=== PATIENT | male | born 1985 | race Caucasian/White ===

== ENCOUNTER 2019-01-26 09:25 | Emergency (ER) | payer SELFPAY ==
[2019-01-26] MEDS ORDERED: predniSONE 20 MG Tab PO ONE (11:39)
[2019-01-26] MEDS ORDERED: HYDROmorphone 0.5 MG/0.5 ML Syringe IM ONE (11:39)
--- NOTE | 2019-01-26 11:59 | EDM.PDOC ---
ED HPI GENERAL MEDICAL PROBLEM - General Chief Complaint: Upper Extremity Injury/Pain Stated Complaint: RT HAND PAIN Time Seen by Provider: 01/26/19 11:25 Source of Information: Reports: Patient, RN Notes Reviewed History Limitations: Reports: No Limitations - History of Present Illness INITIAL COMMENTS - FREE TEXT/NARRATIVE: The patient is a 33-year-old male who presents to the ED for the evaluation of a right middle finger injury. The patient states that he developed pain into his right middle finger around 2 weeks ago, and he thought this was getting better however over the last 2 days since is worsened immensely. He notes that the pain is pretty constant at a 3/10 but it occasionally seems to spasm and causes him extreme pain which he would rate at a 10 out of 10. He notes that the entire right middle finger is swollen, and does shoot pain down his arm. 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 He denies any trauma to the area. However he states that he has had previous injuries to the hand where he has cut some fingers pretty extensively and had that repaired. The patient states that he's been taking 800 mg ibuprofen 2 times daily and this is been kind of helping but he has been placing diclofenac topical ointment on the finger and this seems to help the best. Right Finger-Middle Pain Score (Numeric/FACES): 3 - Related Data Allergies Allergy/AdvReac Type Severity Reaction Status Date / Time No Known Allergies Allergy Verified 01/26/19 10:03 Home Meds: Home Meds Acetaminophen/HYDROcodone [[place] 325-5 MG] 1 tab PO Q6H PRN #12 tablet 01/26/19 [Rx] Past Medical History Respiratory History: Reports: Other (See Below) Other Respiratory History: History of intubation, chest tube with trauma years ago - Past Surgical History GI Surgical History: Reports: Other (See Below) Other GI Surgeries/Procedures: right inguinal hernia repair Neurological Surgical History: Reports: Other (See Below) Other Neurological Surgeries/Procedures: microdiskectomy Musculoskeletal Surgical History: Reports: Other (See Below) Other Musculoskeletal Surgeries/Procedures:: rib fractures Social & Family History - Family History Family Medical History: Noncontributory - Tobacco Use Smoking Status *Q: Current Every Day Smoker Years of Tobacco use: 15 Packs/Tins Daily: 0.5 - Caffeine Use Caffeine Use: Reports: Coffee, Soda - Recreational Drug Use Recreational Drug Use: No Review of Systems - Review of Systems Review Of Systems: See Below Constitutional: Reports: No Symptoms Eyes: Reports: No Symptoms Ears: Reports: No Symptoms Nose: Reports: No Symptoms Mouth/Throat: Reports: No Symptoms Respiratory: Reports: No Symptoms Cardiovascular: Reports: No Symptoms GI/Abdominal: Reports: No Symptoms Genitourinary: Reports: No Symptoms Musculoskeletal: Reports: Hand Pain (Right hand pain, R middle finger pain) Skin: Reports: No Symptoms ED EXAM, GENERAL - Physical Exam Exam: See Below Exam Limited By: No Limitations General Appearance: Alert, WD/WN, No Apparent Distress Respiratory/Chest: No Respiratory Distress, Lungs Clear, Normal Breath Sounds, No Accessory Muscle Use, Chest Non-Tender Cardiovascular: Normal Peripheral Pulses, Regular Rate, Rhythm, No Murmur Peripheral Pulses: 3+: Radial (L), Radial (R) Extremities: Normal Inspection, Normal Capillary Refill, Limited Range of Motion (of right fingers d/t pain. He is not able to fully extend his fingers without shooting pains. He notes that if he holds his right wrist, this does alleviate the pain.) Neurological: Alert, Oriented, Normal Cognition, No Motor/Sensory Deficits Psychiatric: Normal Affect, Normal Mood Skin Exam: Warm, Dry, Intact, Normal Color, No Rash Course - Vital Signs Last Recorded V/S: Last Vital Signs Temp 98.4 F 01/26/19 10:00 Pulse 79 01/26/19 10:00 Resp 16 01/26/19 10:00 BP 131/92 H 01/26/19 10:00 Pulse Ox 100 01/26/19 10:00 - Orders/Labs/Meds Labs: Laboratory Tests 01/26/19 01/26/19 01/26/19 Range/Units 12:50 12:50 13:13 WBC 12.93 H (4.23-9.07) K/mm3 RBC 4.42 L (4.63-6.08) M/mm3 Hgb 13.1 L (13.7-17.5) gm/L Hct 39.2 L (40.1-51.0) % MCV 88.7 (79.0-92.2) fl MCH 29.6 (25.7-32.2) pg MCHC 33.4 (32.2-35.5) g/dl RDW Std Deviation 45.1 H (35.1-43.9) fL Plt Count 283 (163-337) K/mm3 MPV 10.0 (9.4-12.3) fl Neutrophils % (Manual) 78 H (40-60) % Band Neutrophils % 0 (0-10) % Lymphocytes % (Manual) 18 L (20-40) % Atypical Lymphs % 0 % Monocytes % (Manual) 4 (2-10) % Eosinophils % (Manual) 0 L (0.8-7.0) % Basophils % (Manual) 0 L (0.2-1.2) Platelet Estimate Adequate RBC Morph Comment Normal ESR 14 (0-15) mm/hr C-Reactive Protein 0.5 (<1.0) mg/dL Meds: Medications Discontinued Medications Generic Name Dose Route Start Last Admin Trade Name Freq PRN Reason Stop Dose Admin Hydromorphone HCl 0.5 mg 01/26/19 11:39 01/26/19 11:51 Dilaudid IM 01/26/19 11:40 0.5 mg ONETIME ONE Administration Prednisone 40 mg 01/26/19 11:39 01/26/19 11:51 Prednisone PO 01/26/19 11:40 40 mg ONETIME ONE Administration - Radiology Interpretation Free Text/Narrative:: Hand x-ray is read as follows. 1. Metallic foreign body, this is linear and 7.6 mm in length near the pieces forearm bone in the volar wrist. 2. 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 3. No acute bony abnormality is seen. - Re-Assessments/Exams Free Text/Narrative Re-Assessment/Exam: 01/26/19 11:56 The patient presents to the ED for evaluation of a right middle finger injury or pain. An x-ray was obtained by triage nurse, and this does not demonstrate any sort of acute fracture of the right finger, however there does appear to be some sort of metallic foreign body on the anterior surface of his right wrist. 01/26/19 12:39 The patient was reassessed at bedside, he is feeling quite a bit of pain, I also was in contact with Dr. Miranda in [place], he is a hand surgeon, he reviewed the x-rays and was worried about a possible tenosynovitis when I told him the patient's history, he recommended doing some baseline labs, CBC, CRP and a sedimentation rate I did order these labs for evaluation, patient still denies any fevers or chills that he's been having. He will need to go be evaluated by Dr. Miranda tomorrow in [place] and I did let the patient know this. Departure - Departure Time of Disposition: 12:40 Disposition: Home, Self-Care 01 Condition: Fair Clinical Impression: Pain of right middle finger - Discharge Information *PRESCRIPTION DRUG MONITORING PROGRAM REVIEWED*: No *COPY OF PRESCRIPTION DRUG MONITORING REPORT IN PATIENT BREANNE: No Prescriptions: Acetaminophen/HYDROcodone [[place] 325-5 MG] 1 tab PO Q6H PRN #12 tablet PRN Reason: Pain Instructions: Tendinitis, [id number] Referrals: PCP,None [Primary Care Provider] - Forms: ED Department Discharge Additional Instructions: You were evaluated in the ED today for your right middle finger pain. An x-ray was obtained and there was metallic foreign body identified on the x- ray but this is known to be old. Your symptoms were worrisome from the hand surgeon's viewpoint for tenosynovitis which is an inflammation of the tendon sheath on the right hand. You were given a few tablets of pain medications to get through tomorrow, these were electronically prescribed to the [facility] pharmacy located near [facility]. The surgeon would like to see you for evaluation in [place] at the [facility] at noon Central time, he also suggested that you do not eat anything or drink anything after midnight tonight in case you would require surgery tomorrow. You did have some labs drawn at today's ER visit, recommend that you come by tomorrow morning for a printout of these so you can take them with to your appointment tomorrow. Please return to the ED if your symptoms should change or worsen.
--- NOTE | 2019-01-26 12:09 | CR ---
Right hand: 4 views of the right hand were obtained. Comparison: No previous hand exam is available. Findings: Small linear radiopacity is seen which is suspicious for broken needle or other piece of wire which is projected within the volar wrist close to the pisiform bone. This linear opacity measures 7.6 mm in length. Cysts are seen within the lunate bone. Joint spaces are maintained within the hand and wrist. No additional abnormality is appreciated. Impression: 1. Metallic foreign body as described above. 2. 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 3. No acute bony abnormality is seen. Diagnostic code #3
== END 2019-01-26 12:58 | disposition home or self-care (01) ==
LOC: JD.ED 09:25
DX: M79.644 Pain in right finger(s) (principal); F17.210 Nicotine dependence, cigarettes, uncomplicated
CPT/HCPCS: 36415; 73130; 85007; 85027; 85652; 86140; 96372; 99283; A9270; J1170

== ENCOUNTER 2019-02-06 01:49 | Emergency (ER) | payer SELFPAY ==
--- NOTE | 2019-02-06 02:13 | EDM.PDOC ---
ED HPI GENERAL MEDICAL PROBLEM - General Chief Complaint: Allergic Reaction Stated Complaint: INFECTED R HAND/ALLERGIC REACTION Time Seen by Provider: 02/06/19 02:13 Source of Information: Reports: Patient History Limitations: Reports: No Limitations - History of Present Illness INITIAL COMMENTS - FREE TEXT/NARRATIVE: 33-year-old male presents to the ED with painful swollen right third finger that had become secondarily infected. He has had a Z-plasty on the volar aspect of the finger and a puncture wound to drain no man's land mid Nu[place]ez's space and also volar wrist area carried out by hand surgeon in [place] 10 days ago. Initial presentation was to her hospital cultures were obtained. He states his finger has become much more swollen over the last 24-36 hours and more painful. He took his last tablet of Bactrim double strength yesterday. He did see the PA in follow-up in [place] and asked for more antibiotics but was declined. Subsequently he developed a diffuse erythematous rash with hives tonight including swelling is of his lips and his eyelids. Associated generalized pruritus. Unclear whether the Bactrim double strength did this as he finished up the last 10 days of medication yesterday. or whether the ibuprofen that he took i.e. 800 mg before going to bed precipitated the allergic response. He states she's been taking 800 mg of ibuprofen twice daily for at least 2 weeks without any problems. It appears that is most likely an allergic reaction to Bactrim. He is taken 50 mg of Benadryl by mouth 2 hours ago and most of his itching and erythema has dissipated but his lips remain grossly swollen and his eyelids are swollen. States his fingers throbbing in killing him with pain. Onset: Sudden Onset Date: 02/05/19 Onset Time: 23:00 Duration: Hour(s):, Improving (He states the redness and itching is somewhat improved since took Benadryl 50 mg by mouth. His legs remain swollen his eyes remain swollen and he still has a bit of a heavy pressure in his central chest.) Location: Reports: Face (Swelling of both upper and lower eyelids in both upper and lower lips.), Chest Quality: Reports: Other (Allergic reaction.) Severity: Moderate Improves with: Reports: Other (Has modest improvement of erythema and urticaria after taking Benadryl 50 mg by mouth 2 hours ago.) Worsens with: Reports: None Context: Reports: Other (Just finished a 10 day course of Bactrim double strength yesterday for an infection in his right third finger that had to be surgically opened and drained by a hand surgeon. Suspect culprit is sulfa medications. The only other medication is been taking his ibuprofen 800 mg twice daily and is been doing that for many months.). Denies: Activity, Exercise, Lifting, Sick Contact, Trauma Associated Symptoms: Reports: Chest Pain. 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: Reports: Other (see below) (None.) Chest Pain Score (Numeric/FACES): 4 - Related Data Allergies Allergy/AdvReac Type Severity Reaction Status Date / Time Penicillins Allergy Hives Verified 02/06/19 02:19 Home Meds: Home Meds Acetaminophen/HYDROcodone [[place] 325-5 MG] 1 tab PO Q6H PRN #12 tablet 01/26/19 [Rx] Doxycycline [Vibramycin] 100 mg PO BID #24 cap 02/06/19 [Rx] Ibuprofen 800 mg PO DAILY PRN 02/06/19 [History] Sulfamethoxazole/Trimethoprim [Bactrim Ds Tablet] 1 tab PO BID 02/06/19 [History ] oxyCODONE HCl/Acetaminophen [Percocet 5-325 mg Tablet] 1 - 2 each PO Q4H PRN # 16 tablet 02/06/19 [Rx] predniSONE [Deltasone] 20 mg PO BID #6 tablet 02/06/19 [Rx] Past Medical History Respiratory History: Reports: Other (See Below) Other Respiratory History: History of intubation, chest tube with trauma years ago Musculoskeletal History: Reports: Other (See Below) (Patient is currently recovering from a infection in his right third finger. He required a Z-plasty of the finger and opening of [place] man[place] in the palmar aspect of his hand to drains pus as well as a surgical wound at the wrist 10 days ago. He was reviewed by orthopedic surgeon's PA yesterday who felt that he did not require any further antibiotic therapy. Patient states that the finger is becoming more swollen and more painful and had requested further antibiotic therapy which was denied to him.) - Past Surgical History GI Surgical History: Reports: Other (See Below) Other GI Surgeries/Procedures: right inguinal hernia repair Neurological Surgical History: Reports: Other (See Below) Other Neurological Surgeries/Procedures: microdiskectomy Musculoskeletal Surgical History: Reports: Other (See Below) Other Musculoskeletal Surgeries/Procedures:: rib fractures Social & Family History - Family History Family Medical History: Noncontributory - Caffeine Use Caffeine Use: Reports: Coffee, Soda - Living Situation & Occupation Living situation: Reports: Single Occupation: Employed ED ROS ALLERGIC REACTION - Review of Systems Review Of Systems: See Below Constitutional: Reports: Fatigue, Decreased Appetite. Denies: Fever, Chills, Malaise, Weakness HEENT: Reports: Other (Swelling of upper and lower lips. Swelling of upper and lower eyelids.) Respiratory: Reports: Shortness of Breath. Denies: Cough (Feels a sense of shortness of breath and a pressure in his central chest.) Cardiovascular: Reports: Chest Pain (Central chest discomfort.). Denies: Blood Pressure Problem, Claudication, Dyspnea on Exertion, Edema, Lightheadedness, Orthopnea Endocrine: Reports: No Symptoms GI/Abdominal: Reports: No Symptoms Skin: Reports: Pruritis, Erythema, Urticaria Neurological: Reports: No Symptoms Psychiatric: Reports: No Symptoms Hematologic/Lymphatic: Reports: No Symptoms ED EXAM GENERAL NO PERIP PULSE - Physical Exam Exam: See Below Exam Limited By: No Limitations General Appearance: Alert, WD/WN, Anxious, Mild Distress Eye Exam: Bilateral Eye: Periorbital Changes (There is edema both the upper and lower eyelids bilaterally. No conjunctival edema. It's his eyes are mildly itchy.) Ears: Normal TMs Throat/Mouth: Other (Both upper and lower lips are markedly edematous particular the upper lip.) Head: Atraumatic ( No evidence that this affected his tongue the back of his throat the uvula is normal in the floor the mouth is normal.), Normocephalic Neck: Normal Inspection, Supple, Non-Tender, Full Range of Motion. No: Lymphadenopathy (L), Lymphadenopathy (R) Respiratory/Chest: No Respiratory Distress, Lungs Clear, Normal Breath Sounds, Chest Non-Tender. No: Wheezing Cardiovascular: Normal Peripheral Pulses, Regular Rate, Rhythm, No Edema, No Gallop, No Murmur, No Rub GI/Abdominal: Normal Bowel Sounds, Soft, Non-Tender, No Organomegaly, No Abnormal Bruit, No Mass, Pelvis Stable Extremities: Normal Inspection, Other (Examination of his right third finger shows it to be markedly so swollen. It is probably twice normal thickness and size. He has inability to fully flex the finger due to swelling. Warm to palpation suggesting that it is suffering an infective process. Surgical wounds on the volar surface of the finger and palm of his hand appear to be healing satisfactorily. However the finger itself appears to be becoming infected once again) Neurological: Alert, Oriented, CN II-XII Intact, Normal Cognition Psychiatric: Anxious Course - Vital Signs Last Recorded V/S: Last Vital Signs Temp 36.1 C 02/06/19 02:11 Pulse 71 02/06/19 02:11 Resp 19 02/06/19 04:25 BP 116/72 02/06/19 04:25 Pulse Ox 99 02/06/19 04:25 - Orders/Labs/Meds Meds: Medications Discontinued Medications Generic Name Dose Route Start Last Admin Trade Name Lizette PRN Reason Stop Dose Admin Dexamethasone 10 mg 02/06/19 02:22 02/06/19 02:40 Dexamethasone IV 02/06/19 02:23 10 mg ONETIME ONE Administration Diphenhydramine HCl 25 mg 02/06/19 02:22 02/06/19 02:36 Benadryl IVPUSH 02/06/19 02:23 25 mg ONETIME ONE Administration Famotidine 20 mg 02/06/19 02:22 02/06/19 02:41 Pepcid IVPUSH 02/06/19 02:23 20 mg ONETIME ONE Administration Hydromorphone HCl 0.5 mg 02/06/19 02:24 02/06/19 02:41 Dilaudid IVPUSH 02/06/19 02:25 0.5 mg ONETIME ONE Administration Sodium Chloride 1,000 mls @ 500 mls/hr 02/06/19 02:30 02/06/19 02:49 Normal Saline IV 500 mls/hr ASDIRECTED MADAN Administration Doxycycline Hyclate 100 mg/ 100 mls @ 100 mls/hr 02/06/19 02:23 02/06/19 03: 01 Sodium Chloride IV 02/06/19 03:22 100 mls/hr ONETIME ONE Administration Ondansetron HCl 4 mg 02/06/19 02:23 02/06/19 02:36 Zofran IVPUSH 02/06/19 02:24 4 mg ONETIME ONE Administration - Radiology Interpretation Free Text/Narrative:: 33-year-old male presents to the ED with an acute generalized allergic reaction. He has just finished a 10 day course of Bactrim double strength for infection in his right third finger that required Z-plasty and opening of the [place] man[place] in the palm of his hand by a hand surgeon to decompress it and wash out the wound. Us was done 11 days ago. He presents with generalized pruritus generalized erythema swelling of his upper and lower lips and swelling of his upper and lower eyelids. Central chest pressure discomfort described as a heaviness. He is not wheezing. There is no swelling of his uvula or the floor the mouth or tongue. Definite swelling of the upper lip and lower lip. Upper lip is 3 times normal size. There is edema both upper and lower eyelids. His erythema urticaria he states is markedly improved since 2 Benadryl 50 mg 2 hours before coming to the ED. Plan he will be given IV fluids normal saline at 500 mils per hour. Will give him dexamethasone 10 mg IV for allergic relief. 25 mg of Benadryl IV and Pepcid 20 mg IV. Also give him Dilaudid 0.5 mg IV for pain in his right third finger. Will also be given Zofran 4 mg IV to prevent any nausea vomiting from the Dilaudid. I believe the finger is infected I'm going to give him a dose of doxycycline 100 mg IV. - Re-Assessments/Exams Free Text/Narrative Re-Assessment/Exam: 02/06/19 04:02 patient is feeling improved. Lip swelling is at least 50% better no further itching or redness or hives. It appears that this most likely is allergic response to sulfa antibiotic. His right middle finger is markedly swollen and he indicates that his become much more swollen in the last day or so. This suggests a recurrence of infection. I'm going to place him on doxycycline 100 mg twice daily for another 12 days to clear the infection up. He will be placed on prednisone 20 mg twice a day for 3 days breakfast and supper to prevent further allergic response. He will use Benadryl 50 mg every 6 hours as needed for recurrence of itching or erythema or hives. I have advised him to send pictures of his finger to his orthopedic surgeon to see whether or not he wants to see him sooner rather than later in regards to suspect recurrent infection within the finger. Departure - Departure Time of Disposition: 04:04 Disposition: Home, Self-Care 01 Condition: Fair Clinical Impression: Allergic reaction due to antibacterial drug, Recurrent bacterial infection - Discharge Information *PRESCRIPTION DRUG MONITORING PROGRAM REVIEWED*: Not Applicable *COPY OF PRESCRIPTION DRUG MONITORING REPORT IN PATIENT BREANNE: Not Applicable Prescriptions: Doxycycline [Vibramycin] 100 mg PO BID #24 cap oxyCODONE HCl/Acetaminophen [Percocet 5-325 mg Tablet] 1 - 2 each PO Q4H PRN # 16 tablet PRN Reason: pain relief. predniSONE [Deltasone] 20 mg PO BID #6 tablet Instructions: Allergies, Adult, [id number], Drug Allergy, Antibiotic Medicine , Adult Referrals: PCP,None [Primary Care Provider] - Forms: ED Department Discharge Additional Instructions: Evaluation the emergency room this morning in regards to development of allergic response with generalized itchiness and erythema of the skin with some hives and swelling of your lips and lower and upper eyelids. Associated heaviness in her chest as well. It appears that you most likely have developed an allergic response to the antibiotic you're on for the last 10 days called Bactrim double strength. This has a sulfa antibiotic in it and you are therefore allergic to sulfa antibiotics for the rest of your life. You're treated with 25 mg of Benadryl intravenously with Pepcid 20 mg IV and dexamethasone 10 mg IV just alleviate the acute allergic reaction. You may have to take Benadryl 50 mg every 6 hours for recurrence of itching or erythema or hives for the next day or so. He will need to take prednisone 20 mg twice daily for the next 3 days usually with breakfast and supper to prevent allergic response from reoccurring. Due to increased swelling of your right index finger and recent need for surgical drainage I have placed her back on antibiotics. You 're given the initial dose of doxycycline 100 mg intravenously while in the ED. You will need to use the tablet form 100 mg twice daily for the next 12 days to try and clear this infection up. Next dose would be due at suppertime tonight. If the finger is not markedly improved on the next 48 hours to 72 hours she will need to follow-up with the hand surgeon that did the initial surgery. I would tell you just go back to [place] for this.
[2019-02-06] MEDS ORDERED: diphenhydrAMINE 50 MG/ML SDV IVPUSH ONE (02:22)
[2019-02-06] MEDS ORDERED: Dexamethasone 4 MG/ML 5 ML MDV IV ONE (02:22)
[2019-02-06] MEDS ORDERED: Famotidine 20 MG/2 ML SDV IVPUSH ONE (02:22)
[2019-02-06] MEDS ORDERED: Ondansetron 4 MG/2 ML SDV IVPUSH ONE (02:23)
[2019-02-06] MEDS ORDERED: Doxycycline 100 MG in Sodium Chloride 0.9% 100 ML IV ONE (02:23)
[2019-02-06] MEDS ORDERED: HYDROmorphone 0.5 MG/0.5 ML Syringe IVPUSH ONE (02:24)
[2019-02-06] MEDS ORDERED: Sodium Chloride 0.9% 1,000 ML IV SCH (02:30)
== END 2019-02-06 04:25 | disposition home or self-care (01) ==
LOC: JD.ED 01:49
DX: A49.9 Bacterial infection, unspecified (principal); T36.95XA Adverse effect of unspecified systemic antibiotic, initial encounter; Z88.0 Allergy status to penicillin
CPT/HCPCS: 96365; 96375; 99284; J1100; J1170; J1200; J2405; J3490; J7030; J7040; S0028

== ENCOUNTER 2019-08-02 16:11 | Emergency (ER) | payer MEDICAID, OTHER ==
--- NOTE | 2019-08-02 17:26 | EDM.PDOC ---
ED HPI GENERAL MEDICAL PROBLEM - General Chief Complaint: General Stated Complaint: FLANK PAIN Time Seen by Provider: 08/02/19 17:04 Source of Information: Reports: Patient History Limitations: Reports: No Limitations - History of Present Illness INITIAL COMMENTS - FREE TEXT/NARRATIVE: Kenneth is a 34 year old male who presents today for multiple different complaints . Reports bilateral flank pain, pain in his low back, buttocks, chest , abdomen and muscle spasms throughout his abdomen. He reports urgency to urinate but inability to urinate. States he is up every 30 minutes at night to urinate. Feels he has multiple organ failure due to infection in his teeth and from his finger. State he symptoms have been going on for 2 years. Reports he has infection all throughout his body. In February he had an infected finger which required surgical intervention. He is drinking a [employer] milk shake when I enter the room. He has candy in his pocket which he is eating to rid his mouth of the "horrible taste". Onset: Gradual Duration: Week(s): (104) Location: Reports: Chest, Abdomen, Back Bilateral Flank Pain Score (Numeric/FACES): 7 - Related Data Allergies Allergy/AdvReac Type Severity Reaction Status Date / Time Penicillins Allergy Hives Verified 02/06/19 02:19 Home Meds: Home Meds Acetaminophen/HYDROcodone [[place] 325-5 MG] 1 tab PO Q6H PRN #12 tablet 01/26/19 [Rx] Doxycycline [Vibramycin] 100 mg PO BID #24 cap 02/06/19 [Rx] Ibuprofen 800 mg PO DAILY PRN 02/06/19 [History] Sulfamethoxazole/Trimethoprim [Bactrim Ds Tablet] 1 tab PO BID 02/06/19 [History ] oxyCODONE HCl/Acetaminophen [Percocet 5-325 mg Tablet] 1 - 2 each PO Q4H PRN # 16 tablet 02/06/19 [Rx] predniSONE [Deltasone] 20 mg PO BID #6 tablet 02/06/19 [Rx] Clindamycin HCl 300 mg PO Q6HR #40 capsule 08/02/19 [Rx] Past Medical History Cardiovascular History: Reports: Heart Murmur Respiratory History: Reports: Other (See Below) Other Respiratory History: History of intubation, chest tube with trauma years ago Musculoskeletal History: Reports: Other (See Below) Psychiatric History: Reports: Anxiety, Depression - Infectious Disease History Infectious Disease History: Reports: C-Difficile - Past Surgical History HEENT Surgical History: Reports: Oral Surgery GI Surgical History: Reports: Other (See Below) Other GI Surgeries/Procedures: right inguinal hernia repair Neurological Surgical History: Reports: Other (See Below) Other Neurological Surgeries/Procedures: microdiskectomy Musculoskeletal Surgical History: Reports: Other (See Below) Other Musculoskeletal Surgeries/Procedures:: rib fractures Social & Family History - Family History Family Medical History: Noncontributory - Tobacco Use Smoking Status *Q: Current Every Day Smoker Years of Tobacco use: 15 Packs/Tins Daily: 0.5 - Caffeine Use Caffeine Use: Reports: Coffee, Soda - Living Situation & Occupation Living situation: Reports: Single Occupation: Employed ED ROS GENERAL - Review of Systems Review Of Systems: See Below Constitutional: Reports: Malaise Cardiovascular: Reports: Chest Pain GI/Abdominal: Reports: Abdominal Pain : Reports: Flank Pain, Frequency, Urgency Musculoskeletal: Reports: Back Pain, Leg Pain Skin: Reports: Lumps (neck) ED EXAM, GENERAL - Physical Exam Exam: See Below Exam Limited By: No Limitations General Appearance: Alert, WD/WN, No Apparent Distress Eye Exam: Bilateral Eye: Normal Inspection Ears: Normal External Exam, Normal Canal, Hearing Grossly Normal, Normal TMs Nose: Normal Inspection Throat/Mouth: Normal Inspection, Normal Lips, Normal Voice, No Airway Compromise , Other (poor dentition with multiple missing teeth, multiple carries and significant gingivitis) Neck: Normal Inspection, Full Range of Motion Respiratory/Chest: No Respiratory Distress, Lungs Clear, Normal Breath Sounds Cardiovascular: Normal Peripheral Pulses, Regular Rate, Rhythm, No Murmur Peripheral Pulses: 3+: Radial (L), Radial (R), Posterior Tibial (L), Posterior Tibial (R), Dorsalis Pedis (L), Dorsalis Pedis (R) GI/Abdominal: Normal Bowel Sounds, Soft, Non-Tender Neurological: Alert, Normal Cognition Skin Exam: Warm, Dry, Normal Color Course - Vital Signs Last Recorded V/S: Last Vital Signs Temp 97.8 F 08/02/19 16:30 Pulse 87 08/02/19 16:30 Resp 16 08/02/19 16:30 BP 147/98 H 08/02/19 16:30 Pulse Ox 100 08/02/19 16:30 - Orders/Labs/Meds Labs: Laboratory Tests 08/02/19 08/02/19 08/02/19 Range/Units 17:35 17:35 18:20 WBC 5.19 (4.23-9.07) K/mm3 RBC 4.63 (4.63-6.08) M/mm3 Hgb 13.3 L (13.7-17.5) gm/dl Hct 42.6 (40.1-51.0) % MCV 92.0 D (79.0-92.2) fl MCH 28.7 (25.7-32.2) pg MCHC 31.2 L (32.2-35.5) g/dl RDW Std Deviation 47.7 H (35.1-43.9) fL Plt Count 205 D (163-337) K/mm3 MPV 10.3 (9.4-12.3) fl Neutrophils % (Manual) 52 (40-60) % Band Neutrophils % 0 (0-10) % Lymphocytes % (Manual) 36 (20-40) % Atypical Lymphs % 0 % Monocytes % (Manual) 11 H (2-10) % Eosinophils % (Manual) 0 L (0.8-7.0) % Basophils % (Manual) 1 (0.2-1.2) Platelet Estimate Adequate Plt Morphology Comment Normal RBC Morph Comment Normal Sodium 144 (136-145) mEq/L Potassium 3.3 L (3.5-5.1) mEq/L Chloride 104 (98-107) mEq/L Carbon Dioxide 27 (21-32) mEq/L Anion Gap 16.3 H (5-15) BUN 7 (7-18) mg/dL Creatinine 1.0 (0.7-1.3) mg/dL Est Cr Clr Drug Dosing 106.85 mL/min Estimated GFR (MDRD) > 60 (>60) mL/min BUN/Creatinine Ratio 7.0 L (14-18) Glucose 102 (74-106) mg/dL Calcium 8.6 (8.5-10.1) mg/dL Total Bilirubin 0.2 (0.2-1.0) mg/dL AST 15 (15-37) U/L ALT 23 (16-63) U/L Alkaline Phosphatase 103 (46-116) U/L C-Reactive Protein 1.1 H* (<1.0) mg/dL Total Protein 7.6 (6.4-8.2) g/dl Albumin 3.7 (3.4-5.0) g/dl Globulin 3.9 gm/dL Albumin/Globulin Ratio 1.0 (1-2) Urine Color Light yellow (Yellow) Urine Appearance Clear (Clear) Urine pH 7.0 (5.0-8.0) Ur Specific [place] 1.025 (1.005-1.030) Urine Protein Trace H (Negative) Urine Glucose (UA) Negative (Negative) Urine Ketones Negative (Negative) Urine Occult Blood Negative (Negative) Urine Nitrite Negative (Negative) Urine Bilirubin Negative (Negative) Urine Urobilinogen 0.2 (0.2-1.0) Ur Leukocyte Esterase Negative (Negative) Urine RBC Not seen (0-5) /hpf Urine WBC 0-5 (0-5) /hpf Ur Squamous Epith Cells 0-5 (0-5) /hpf Urine Bacteria Not seen (FEW) /hpf Urine Mucus Few (FEW) /hpf Urine Opiates Screen (ECENII=658) Ur Buprenorphine Scrn (CUTOFF=10) Ur Oxycodone Screen (FRN1EL=666) Urine Methadone Screen (DYI6RU=440) Ur Propoxyphene Screen (FKULCR=013) Ur Barbiturates Screen (BXOPSL=623) Ur Tricyclics Screen (EGAFWC=874) Ur Phencyclidine Scrn (CUTOFF=25) Ur Amphetamine Screen (POSBTR=132) U Methamphetamines Scrn (YXTOYX=511) U Benzodiazepines Scrn (TKLCFO=156) U Cocaine Metab Screen (VIRIWQ=752) U Marijuana (THC) Screen (CUTOFF=50) 08/02/19 Range/Units 18:20 WBC (4.23-9.07) K/mm3 RBC (4.63-6.08) M/mm3 Hgb (13.7-17.5) gm/dl Hct (40.1-51.0) % MCV (79.0-92.2) fl MCH (25.7-32.2) pg MCHC (32.2-35.5) g/dl RDW Std Deviation (35.1-43.9) fL Plt Count (163-337) K/mm3 MPV (9.4-12.3) fl Neutrophils % (Manual) (40-60) % Band Neutrophils % (0-10) % Lymphocytes % (Manual) (20-40) % Atypical Lymphs % % Monocytes % (Manual) (2-10) % Eosinophils % (Manual) (0.8-7.0) % Basophils % (Manual) (0.2-1.2) Platelet Estimate Plt Morphology Comment RBC Morph Comment Sodium (136-145) mEq/L Potassium (3.5-5.1) mEq/L Chloride (98-107) mEq/L Carbon Dioxide (21-32) mEq/L Anion Gap (5-15) BUN (7-18) mg/dL Creatinine (0.7-1.3) mg/dL Est Cr Clr Drug Dosing mL/min Estimated GFR (MDRD) (>60) mL/min BUN/Creatinine Ratio (14-18) Glucose (74-106) mg/dL Calcium (8.5-10.1) mg/dL Total Bilirubin (0.2-1.0) mg/dL AST (15-37) U/L ALT (16-63) U/L Alkaline Phosphatase (46-116) U/L C-Reactive Protein (<1.0) mg/dL Total Protein (6.4-8.2) g/dl Albumin (3.4-5.0) g/dl Globulin gm/dL Albumin/Globulin Ratio (1-2) Urine Color (Yellow) Urine Appearance (Clear) Urine pH (5.0-8.0) Ur Specific [place] (1.005-1.030) Urine Protein (Negative) Urine Glucose (UA) (Negative) Urine Ketones (Negative) Urine Occult Blood (Negative) Urine Nitrite (Negative) Urine Bilirubin (Negative) Urine Urobilinogen (0.2-1.0) Ur Leukocyte Esterase (Negative) Urine RBC (0-5) /hpf Urine WBC (0-5) /hpf Ur Squamous Epith Cells (0-5) /hpf Urine Bacteria (FEW) /hpf Urine Mucus (FEW) /hpf Urine Opiates Screen Negative (GZYTPP=008) Ur Buprenorphine Scrn Negative (CUTOFF=10) Ur Oxycodone Screen Negative (FWE8QN=758) Urine Methadone Screen Negative (ITG6YV=364) Ur Propoxyphene Screen Negative (GDHMBT=772) Ur Barbiturates Screen Negative (TTDDZL=788) Ur Tricyclics Screen Negative (JYMSHC=314) Ur Phencyclidine Scrn Negative (CUTOFF=25) Ur Amphetamine Screen Presumptive positive H (KYSVRM=894) U Methamphetamines Scrn Presumptive positive H (NIWFIX=613) U Benzodiazepines Scrn Negative (YZNQFF=917) U Cocaine Metab Screen Negative (OVSKYO=411) U Marijuana (THC) Screen Negative (CUTOFF=50) - Radiology Interpretation Free Text/Narrative:: chest xray shows an old anterior wedge deformity in the mid thoracic spine. Nothing acute KUB shows nothing acute. - Re-Assessments/Exams Free Text/Narrative Re-Assessment/Exam: 08/02/19 18:32 I reviewed the labs and imaging with the patient. He insists he has dental infections. He state she is able to pull his teeth out and he reports a bad taste in his mouth. I will place him on clindamycin for dental infection and he needs to follow-up with a dentist. He is positive for methamphetamine. He denies using this recently. I can not account for his muscle spasms and pain. I recommend he establish with a primary care provider for further evaluation. Discharge instructions as documented. Departure - Departure Time of Disposition: 18:49 Disposition: Home, Self-Care 01 Condition: Fair Clinical Impression: Infected dental caries, Methamphetamine abuse - Discharge Information *PRESCRIPTION DRUG MONITORING PROGRAM REVIEWED*: No *COPY OF PRESCRIPTION DRUG MONITORING REPORT IN PATIENT BREANNE: No Prescriptions: Clindamycin HCl 300 mg PO Q6HR #40 capsule Instructions: Dental Abscess, Ktse-co-Bewk, Stimulant Use Disorder- Methamphetamines Referrals: PCP,None [Primary Care Provider] - Franck Love MD [Physician] - Forms: ED Department Discharge Additional Instructions: Take the clindamycin 1 cap PO every 6 hours x 10 days. Take with food. Recommend a probiotic, these are available OTC. Follow-up with a dentist as soon as you are able. Rest. Avoid any drugs, alcohol or etc as these will worsen your symptoms. Drink plenty of fluids. Drink water, gatorade, powerade. Follow-up with family medicine. Recommend Dr. White or Marty Schultz at the [facility] ([place]. Call [phone] to schedule with a provider there. Please return to the ER should your symptoms change or worsen. Sepsis Event Note - Evaluation Sepsis Screening Result: No Definite Risk - Focused Exam Vital Signs: Vital Signs Temp Pulse Resp BP Pulse Ox 08/02/19 16:30 97.8 F 87 16 147/98 H 100 Date Exam was Performed: 08/02/19 Time Exam was Performed: 19:09
--- NOTE | 2019-08-02 17:43 | CR ---
Chest: PA and lateral views of the chest were obtained. Comparison: No prior chest x-ray. Heart size and mediastinum are normal. Lungs are clear with no acute parenchymal change. Anterior wedge deformity is seen within the mid thoracic spine which is moderately severe. This is most likely old. Impression: 1. 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 2. Nothing acute is otherwise seen on 2 view chest x-ray. Diagnostic code #2 This report was dictated in [place] Standard Time
--- NOTE | 2019-08-02 17:43 | CR ---
Abdomen: Supine view of the abdomen was obtained. Comparison: No previous abdominal x-ray. Bowel gas pattern appears normal. No abnormal calcifications or soft tissue abnormality is seen. Bony structures are unremarkable. Impression: 1. Nothing acute is identified on supine abdominal x-ray. Diagnostic code #1 This report was dictated in [place] Standard Time
== END 2019-08-02 19:15 | disposition home or self-care (01) ==
LOC: JD.ED 16:11
DX: K04.7 Periapical abscess without sinus (principal); K02.9 Dental caries, unspecified; F15.10 Other stimulant abuse, uncomplicated; F41.9 Anxiety disorder, unspecified; F32.9 Major depressive disorder, single episode, unspecified; F17.210 Nicotine dependence, cigarettes, uncomplicated; Z88.0 Allergy status to penicillin; Z79.899 Other long term (current) drug therapy
CPT/HCPCS: 36415; 71046; 71046-26; 74018; 74018-26; 80053; 80306; 81001; 85007; 85027; 86140; 99283; 99285-25